=== PATIENT | male | born 1980 | race Two or more races ===

== ENCOUNTER 2025-08-29 02:15 | Emergency (ER) | payer MEDICAID, SELFPAY ==
--- NOTE | 2025-08-29 03:14 | PD.EDEPIST ---
ED Epistaxis RME/HPI General Chief complaint: Epistaxis/Nasal Foreign Body Stated complaint: NOSE & EYE BLEEDING Time Seen by Provider: 08/29/25 03:14 Arrival date/time: 08/29/25 02:15 RME / HPI RME / HPI Narrative: Dr. Padilla?s Main ED Evaluation: 45yo male with a history of HTN (not on any medications) presents to the ED for a chief complaint of epistaxis. Patient states he was at work when his right nostril. When he applied pressure, he started bleeding out of his left nostril, so he came in for evaluation. Patient denies any injuries. Denies any other associated symptoms. Related Data Previous Rx's ?Medication ?Instructions ?Recorded amlodipine 10 mg tablet 10 mg PO QDAY #30 tabs 08/29/25 Allergies Allergy/AdvReac Type Severity Reaction Status Date / Time No Known Drug Allergies Allergy Verified 08/29/25 04:53 Review of Systems Review of Systems Systems Reviewed: All systems reviewed, normal except as documented ED Exam Narrative Physical exam: Generally patient is alert in no obvious distress, nose showed mild dried blood bilateral nares. Oropharynx is moist and clear, heart regular rate and rhythm, lungs clear to auscultation equal bilaterally, skin is warm pale and dry without petechiae, neurologic exam Fernando Coma Scale is 15 without focal motor deficits. Course Quality Measures none Orders Category Date Time Status Labetalol IV [Trandate IV] Med 08/29/25 03:18 Discontinued 20 mg IVP X1 ONE Vital Signs Vital signs: Vital Signs Temperature 99.1 F 08/29/25 03:17 Pulse Rate 99 08/29/25 03:17 Respiratory Rate 20 08/29/25 03:17 Blood Pressure 205/120 H 08/29/25 03:17 Pulse Oximetry (%) 98 08/29/25 03:17 Oxygen Delivery Method Room Air 08/29/25 03:17 Epistaxis MDM Narrative MDM Narrative:: Scribe Attestation: 08/29/25 Gayathri Vega am scribing for and in the presence of Dr. Padilla. Patient has a history of hypertension but he is not taking medication for it. He is quite hypertensive here in the emergency room with blood pressure 194/117. He is not currently bleeding from the nose. IV was established and the patient was given labetalol 20 mg IV which helped decrease blood pressure. He will be started on amlodipine to be taken as prescribed. If bleeding resumes to the nose he is to apply pressure. Return to ER if nosebleed returns and becomes uncontrollable. Patient data External records reviewed:: [facility] previous records (Per chart review, patient has no previous ED visits or admissions to this facility.) Clinical information provided by:: patient Social determinants that could affect healthcare access:: none Patient has the following chronic illnesses:: HTN How is presenting disease/condition affected by chronic disease/condition?: exacerbated by Evaluation data The following diagnostics were reviewed and interpreted by me:: other (specify) (none) Lab and/or radiology exams considered but not ordered:: none Interpretation Summary: none Medications / Prescriptions Medications or Prescriptions considered but not ordered:: none Medication administrations:: Medication Administration History Discontinued Medications Labetalol HCl (Labetalol Inj 5 Mg/Ml Vial 20 Ml) 20 mg IVP X1 ONE Stop: 08/29/25 03:19 Last Admin: 08/29/25 04:55 Dose: 20 mg Documented By: OUMAR see above Consultations Consultation(s) initiated? (list below): No Diagnosis Epistaxis Differential Diagnosis: other (See MDM) Most likely diagnosis given after review of the tests above:: see clinical impression below Admission Indicated Admission indicated?: not indicated Admission Request Was there a request for admission?: No Disposition Plan Disposition Plan: Discharge Discharge Attestation Discharge Attestation: The patient and all family members were given an opportunity to ask questions and understood the discharge instructions. Discharge instructions specifically effects, indications for sooner follow up or return to the emergency department, and the expected course of current diagnosis. Patient condition: Stable Discharge Plan Plan Patient Disposition: HOME (Self Care) Prescriptions/Referrals Prescriptions/Med Rec: New amlodipine 10 mg tablet 10 mg PO QDAY Qty: 30 0RF Referrals: No Primary/Family,Physician [Primary Care Provider] - In 1 week Problem List Clinical Impression: Epistaxis, Hypertension Patient/Caregiver Discharge Instructions Education Materials: ED Epistaxis (Adult), ED Hypertension, New (Begin Treatment) Additional Instructions: Apply pressure to the bleeding side of the nose if bleeding returns. Take the blood pressure medication as prescribed. Follow-up with your doctor. Return to ER as needed or if condition worsens. Print Language: Vietnamese Stand Alone Forms: Jaida Award Info., Patient Portal Info Letter
[2025-08-29 03:17] VITALS: BP 205/120; PULSE 99; RESP 20; TEMP 37.3; O2SAT 98
[2025-08-29 04:54] VITALS: BMI 35.5
[2025-08-29 04:55] VITALS: BP 176/115; PULSE 106
[2025-08-29] MEDS: LABETALOL INJ 5 MG/ML VIAL 20 ML 20 MG IVP (04:55)
[2025-08-29 05:20] VITALS: BP 193/111
[2025-08-29 05:22] VITALS: BP 183/109; PULSE 94; RESP 19; TEMP 36.9; O2SAT 96
== END 2025-08-29 05:32 | disposition home or self-care (01) ==
PROVIDERS: Emergency Provider Emergency Medicine
DX: T17.1XXA Foreign body in nostril, initial encounter (principal); I10 Essential (primary) hypertension; R04.0 Epistaxis; W44.9XXA Unspecified foreign body entering into or through a natural orifice, initial encounter
CPT/HCPCS: 96374; 99282; J3490; J1920